=== PATIENT | male | born 1960 | race African-American/Black ===

== ENCOUNTER 2019-10-03 14:16 | Emergency (ER) | payer SELFPAY ==
[~2019-10-03] VITALS: Ht 172.7 cm; Wt 73.0 kg
[2019-10-03 17:00] VITALS: BP 126/68
== END 2019-10-03 17:52 | disposition home or self-care (01) ==
LOC: ER 14:50
DX: I47.1 Supraventricular tachycardia (principal); R05 Cough
CPT/HCPCS: 82962; 87635; 93005; 99284

== ENCOUNTER → 2021-11-05 | Outpatient (CLI) | payer MEDICARE, MEDICAID | END | disposition home or self-care (01) | LOC: CT 10:40 | PROVIDERS: ATTEND Internal Medicine | DX: G40.919 Epilepsy, unspecified, intractable, without status epilepticus (principal); I10 Essential (primary) hypertension; E11.9 Type 2 diabetes mellitus without complications; E78.5 Hyperlipidemia, unspecified; M62.81 Muscle weakness (generalized); R26.89 Other abnormalities of gait and mobility; G47.00 Insomnia, unspecified; F20.9 Schizophrenia, unspecified; F32.0 Major depressive disorder, single episode, mild ==

== ENCOUNTER 2022-01-22 14:52 | Inpatient (IN) | payer MEDICARE, MEDICAID ==
[~2022-01-22] VITALS: Ht 167.6 cm; Wt 92.1 kg
[2022-01-22] MEDS ORDERED: ADENOSINE 3 MG/ML 2ML VIAL IV ONE ×3 (15:30→17:45)
[2022-01-22 15:39] LABS: HEMOGLOBIN. 11.4 g/dL (14.0-18.0); MEAN CORPUSCULAR HEMOGLOBIN 28.4 pg (28.0-32.0); MEAN CORPUSCULAR VOLUME 82.8 fL (80.0-94.0); MEAN PLATELET VOLUME 8.7 fl (7.4-10.4); PLATELET 176 x1000/uL (130-400); RED BLOOD CELL COUNT 3.99 mill/uL (4.7-6.1); RED CELL DISTRIBUTION WIDTH 14.9 % (11.6-14.6)
[2022-01-22 15:51] LABS: CHLORIDE 111 mEq/L (98-107)
[2022-01-22] MEDS ORDERED: ASPIRIN 325MG EC TABLET PO ONE (16:45)
[2022-01-22] MEDS ORDERED: DILTIAZEM HCL 5MG/ML 5ML VIAL IV ONE (17:45)
[2022-01-22 17:55] LABS: PLATELET ESTIMATE NORMAL
[2022-01-22] MEDS ORDERED: ONDANSETRON HCL 4MG/2ML INJ IV PRN (19:00)
[2022-01-22] MEDS ORDERED: DOCUSATE SODIUM 100MG CAPSULE PO PRN (19:00)
[2022-01-22] MEDS ORDERED: IPRATROPIUM/ALBUTEROL 0.5-3(2.5)MG/3ML NEB HHN PRN (19:00)
[2022-01-22] MEDS ORDERED: CLONIDINE 0.1MG TABLET PO PRN (19:00)
[2022-01-22] MEDS ORDERED: AMIODARONE HCL 900 MG in DEXT 5% WATER 482 ML IV SCH ×2 (19:00→19:15)
[2022-01-22] MEDS ORDERED: GUAIFENESIN 200MG/10ML SUGAR FREE UDC PO PRN (19:00)
[2022-01-22] MEDS ORDERED: DEXTROSE 50% WATER 50ML SYRINGE IV PRN (19:00)
[2022-01-22] MEDS ORDERED: MAGNESIUM/ALUMINUM HYDROXIDE/SIMETHICONE 30ML UDC PO PRN (19:00)
[2022-01-22] MEDS ORDERED: ENOXAPARIN 40MG/0.4ML SYR SUBCUT SCH (20:00)
[2022-01-22] MEDS: INSULIN LISPRO 100 UNITS/ML SUBCUT SCH (21:00)
[2022-01-22] MEDS: BLOOD SUGAR DIAGNOSTIC STRIP TEST SCH (21:00)
[2022-01-22 21:09] LABS: CLARITY URINE CLEAR (CLEAR); COLOR URINE YELLOW (YELLOW); KETONES URINE NEGATIVE (NEGATIVE); LEUKOCYTE ESTERASE URINE NEGATIVE (NEGATIVE); NITRITE URINE NEGATIVE (NEGATIVE); OCCULT BLOOD URINE 1+ (NEGATIVE); PH URINE 5.5 (4.5-8.0); PROTEIN URINE NEGATIVE (NEGATIVE); SPECIFIC GRAVITY URINE 1.009 (1.005-1.030)
[2022-01-22 21:20] LABS: *AMPHETAMINES SCREEN URINE NEGATIVE (NEGATIVE); *BARBITURATES SCREEN URINE NEGATIVE (NEGATIVE); *BENZODIAZEPINES SCREEN URINE NEGATIVE (NEGATIVE); *COCAINE SCREEN URINE NEGATIVE (NEGATIVE); CANNABINOID URINE SCREEN NEGATIVE (NEGATIVE); METHADONE URINE SCREEN NEGATIVE (NEGATIVE); OPIATES URINE SCREEN NEGATIVE (NEGATIVE); PHENCYCLIDINE URINE SCREEN NEGATIVE (NEGATIVE)
[2022-01-23] VITALS (8 sets, daily range): BP systolic 126–155; BP diastolic 60–98
[2022-01-23 05:28] LABS: CHLORIDE 112 mEq/L (98-107)
[2022-01-23 05:30] LABS: BASOPHILS % 0.5 % (0.0-2.0); HEMATOCRIT. 32.4 % (42.0-52.0); HEMOGLOBIN. 11.2 g/dL (14.0-18.0); LYMPHOCYTES % 13.9 % (20.0-50.0); MEAN CORPUSCULAR HEMOGLOBIN 28.7 pg (28.0-32.0); MEAN CORPUSCULAR VOLUME 82.8 fL (80.0-94.0); MONOCYTES % 14.1 % (2.0-8.0); NEUTROPHILS % 66.5 % (40.0-76.0); PLATELET 163 x1000/uL (130-400); RED BLOOD CELL COUNT 3.91 mill/uL (4.7-6.1); RED CELL DISTRIBUTION WIDTH 15.3 % (11.6-14.6)
[2022-01-23 05:42] LABS: HDL CHOLESTEROL 32 mg/dL (40-59); LDL CHOLESTEROL 46 mg/dL (5-100); T4 FREE 1.18 ng/dL (0.76-1.46); TOTAL IRON BINDING CAPACITY 293 ug/dL (250-450)
[2022-01-23 05:49] LABS: FOLIC ACID (FOLATE) SERUM 19.6 ng/mL (>5.38)
[2022-01-23 06:00] LABS: VITAMIN B12 SERUM 579 pg/mL (211-911)
[2022-01-23] MEDS: BLOOD SUGAR DIAGNOSTIC STRIP TEST SCH ×4 (06:30→21:16)
[2022-01-23] MEDS: FUROSEMIDE 40MG/4ML VIAL IVP SCH (08:21)
[2022-01-23] MEDS: INSULIN LISPRO 100 UNITS/ML SUBCUT SCH ×4 (08:30→21:00)
[2022-01-23] MEDS: FAMOTIDINE 20MG TABLET PO SCH ×2 (10:11→21:15)
[2022-01-23] MEDS: ENOXAPARIN 30MG/0.3ML SYR SUBCUT SCH (17:25)
[2022-01-23] MEDS: METOPROLOL TARTRATE 25MG TABLET PO SCH (21:16)
[2022-01-24] VITALS (11 sets, daily range): BP systolic 99–142; BP diastolic 59–92
[2022-01-24] MEDS: ENOXAPARIN 30MG/0.3ML SYR SUBCUT SCH ×2 (06:12→17:15)
[2022-01-24] MEDS: INSULIN LISPRO 100 UNITS/ML SUBCUT SCH ×4 (08:00→21:00)
[2022-01-24] MEDS: FUROSEMIDE 40MG/4ML VIAL IVP SCH ×3 (08:22→17:14)
[2022-01-24] MEDS: FAMOTIDINE 20MG TABLET PO SCH ×2 (08:22→21:39)
[2022-01-24] MEDS: METOPROLOL TARTRATE 25MG TABLET PO SCH ×2 (08:23→21:00)
[2022-01-24] MEDS: BLOOD SUGAR DIAGNOSTIC STRIP TEST SCH ×4 (08:23→21:39)
[2022-01-24] MEDS: LOSARTAN POTASSIUM 25 MG TABLET PO SCH (10:17)
[2022-01-24 11:55] LABS: HEMATOCRIT. 31.2 % (42.0-52.0); MEAN CORPUSCULAR HEMOGLOBIN 28.5 pg (28.0-32.0); MEAN CORPUSCULAR VOLUME 80.9 fL (80.0-94.0); MEAN PLATELET VOLUME 8.9 fl (7.4-10.4); PLATELET 172 x1000/uL (130-400); RED BLOOD CELL COUNT 3.85 mill/uL (4.7-6.1); RED CELL DISTRIBUTION WIDTH 15.2 % (11.6-14.6)
[2022-01-24 12:04] LABS: CHLORIDE 109 mEq/L (98-107)
[2022-01-24] MEDS: POTASSIUM CHLORIDE 20MEQ TABLET SR PO SCH ×3 (13:16→17:15)
[2022-01-24 13:22] LABS: PLATELET ESTIMATE NORMAL
[2022-01-25] VITALS: BP 104/59
[2022-01-25 04:00] VITALS: BP 131/60
[2022-01-25] MEDS: ENOXAPARIN 30MG/0.3ML SYR SUBCUT SCH ×2 (05:27→11:07)
[2022-01-25] MEDS: BLOOD SUGAR DIAGNOSTIC STRIP TEST SCH ×4 (07:30→21:00)
[2022-01-25 08:08] LABS: HEMATOCRIT. 31.8 % (42.0-52.0); HEMOGLOBIN. 11.2 g/dL (14.0-18.0); MEAN CORPUSCULAR HEMOGLOBIN 28.8 pg (28.0-32.0); MEAN CORPUSCULAR VOLUME 81.9 fL (80.0-94.0); MEAN PLATELET VOLUME 8.7 fl (7.4-10.4); PLATELET 184 x1000/uL (130-400); RED BLOOD CELL COUNT 3.88 mill/uL (4.7-6.1); RED CELL DISTRIBUTION WIDTH 14.9 % (11.6-14.6)
[2022-01-25 08:33] LABS: CHLORIDE 113 mEq/L (98-107)
[2022-01-25 11:02] VITALS: BP 114/68
[2022-01-25] MEDS: FUROSEMIDE 40MG/4ML VIAL IVP SCH ×3 (11:06→20:12)
[2022-01-25] MEDS: LOSARTAN POTASSIUM 25 MG TABLET PO SCH ×2 (11:07→11:08)
[2022-01-25] MEDS: FAMOTIDINE 20MG TABLET PO SCH ×2 (11:08→21:00)
[2022-01-25] MEDS: METOPROLOL TARTRATE 25MG TABLET PO SCH ×2 (11:10→20:59)
[2022-01-25 12:00] VITALS: BP 104/71
[2022-01-25] MEDS ORDERED: LOSA25TA3 PO (12:40)
[2022-01-25] MEDS ORDERED: FURO-151 PO (12:40)
[2022-01-25] MEDS ORDERED: METO25TA6 PO (12:40)
[2022-01-25 18:00] VITALS: BP 143/65
[2022-01-25 20:00] VITALS: BP 141/89
[2022-01-25 23:01] LABS: PLATELET ESTIMATE NORMAL
[2022-01-26] VITALS: BP 115/76
[2022-01-26 04:00] VITALS: BP 126/70
[2022-01-26] MEDS: ENOXAPARIN 30MG/0.3ML SYR SUBCUT SCH (05:31)
[2022-01-26 08:00] VITALS: BP 132/77
[2022-01-26] MEDS: METOPROLOL TARTRATE 25MG TABLET PO SCH (09:22)
[2022-01-26] MEDS: FAMOTIDINE 20MG TABLET PO SCH (09:22)
[2022-01-26 14:46] VITALS: BP 117/66
== END 2022-01-26 15:36 | DRG 291 ==
LOC: ER 14:52 → MICUSO 17:04 → SUPCPDRO 17:44 → 5EST 01-23 13:40
PROVIDERS: ADMIT Internal Medicine; ATTEND Internal Medicine
DX: I11.0 Hypertensive heart disease with heart failure (principal); I50.23 Acute on chronic systolic (congestive) heart failure; J96.01 Acute respiratory failure with hypoxia; N17.9 Acute kidney failure, unspecified; I47.1 Supraventricular tachycardia; E44.1 Mild protein-calorie malnutrition; G40.909 Epilepsy, unspecified, not intractable, without status epilepticus; D63.8 Anemia in other chronic diseases classified elsewhere; E11.9 Type 2 diabetes mellitus without complications; F20.9 Schizophrenia, unspecified; I42.0 Dilated cardiomyopathy; I27.20 Pulmonary hypertension, unspecified; B35.1 Tinea unguium; E87.6 Hypokalemia; I08.1 Rheumatic disorders of both mitral and tricuspid valves; Z68.32 Body mass index [BMI] 32.0-32.9, adult; Z79.899 Other long term (current) drug therapy
CPT/HCPCS: 36415; 71045; 80053; 80061; 80305; 81003; 82607; 82728; 82746; 82962; 83036; 83540; 83550; 83735; 83880; 84439; 84443; 84484; 85025; 85379; 93005; 93306; 93970; 99291; J0153; J0282; J1650; J1940; J3490; J7060